=== PATIENT | female | born 1980 | race Caucasian/White ===

== ENCOUNTER 2019-12-13 01:56 | Outpatient (CLI) | payer MEDICAID, SELFPAY ==
[2019-12-13 09:16] LABS: Abs Immature Grans 0.07 10^3/uL (0.0-0.06); Absolute Basophil Count 0.04 10^3/uL (0.0-0.2); Absolute Eosinophil Count 0.44 10^3/uL (0.0-0.7); Absolute Lymphocyte Count 2.45 10^3/uL (1.2-3.4); Absolute Monocyte Count 1.21 10^3/uL (0.1-0.8); Basophils % 0.3; Eosinophils % 3.5; HCT 40.4 % (36.0-46.0); HGB 13.1 g/dL (11.2-15.7); Immature Grans % 0.6; Lymphocytes % 19.6; MCH 31.6 pg (27.0-33.0); MCHC 32.4 % (32.0-36.0); MCV 97.6 fL (80-95); MPV 8.7 fL (8.0-11.0); Monocytes % 9.7; Neutrophils % 66.3; Nucleated RBC 0 %; Platelet Count 350 10^3/uL (130-400); RBC 4.14 10^6/uL (3.93-5.22); RDW-SD 46.1 fL; WBC 12.51 10^3/uL (4.4-10.8)
[2019-12-13 09:17] LABS: Absolute Neutrophil Count 8.29 10^3/uL (1.2-6.7)
[2019-12-13 09:56] LABS: Lithium 0.48 mmol/L (0.60-1.20)
[2019-12-13 10:01] LABS: ALT 18 U/L (14-59); AST 12 U/L (15-37); Albumin 3.5 g/dL (3.4-5.0); Alkaline Phosphatase 97 U/L (46-116); BUN 8 mg/dL (7-18); Bilirubin, Total 0.2 mg/dL (0.2-1.0); CREATININE 1.01 mg/dL (0.55-1.02); Calcium 9.1 mg/dL (8.5-10.1); Calculated LDL 128 mg/dL (<100); Chloride 104 mmol/L (98-107); Cholesterol 221 mg/dL (<200); Glucose 76 mg/dL (74-106); HDL Cholesterol 40 mg/dL (40-60); Sodium 139 mmol/L (136-145); TSH 0.96 uIU/mL (0.36-3.74); Triglyceride 266 mg/dL (<150); Vitamin B12 319 pg/mL (193-986)
[2019-12-13 10:30] LABS: Folate > 20.0 ng/mL (8.6-20.0)
[2019-12-13 10:47] LABS: FREE T4 0.84 ng/dL (0.76-1.46)
[2019-12-13 16:42] LABS: T3, Total 131 ng/dL (97-169)
[2019-12-16 07:11] LABS: Vitamin D 25 Total 28.4 ng/ml (30-100)
== END 2019-12-13 02:16 ==
PROVIDERS: PCP Naturopath
DX: F31.31 Bipolar disorder, current episode depressed, mild (principal); E03.9 Hypothyroidism, unspecified; Z51.81 Encounter for therapeutic drug level monitoring; Z79.899 Other long term (current) drug therapy
CPT/HCPCS: 36415; 80053; 80061; 82306; 80178; 82607; 82746; 84439; 84443; 84480; 85025